=== PATIENT | male | born 1995 | race African-American/Black ===

== ENCOUNTER 2016-08-01 11:05 | Emergency (ER) | payer OTHER ==
[~2016-08-01] VITALS: Ht 190.5 cm; Wt 143.9 kg
[2016-08-01] MEDS ORDERED: PEN-VEE K,VEET500 MG PO (12:25)
[2016-08-01 13:39] VITALS: BP 156/103
== END 2016-08-01 13:39 | disposition home or self-care (01) ==
LOC: EME 11:05
DX: K04.7 Periapical abscess without sinus (principal); K02.9 Dental caries, unspecified
CPT/HCPCS: 99281; 99284